=== PATIENT | female | born 1980 | race African-American/Black ===

== ENCOUNTER → 2016-12-18 | Outpatient (CLI) | payer OTHER ==
[~2016-12-18] MED LIST: CYCL5TAB PO; NAPR500 OR; NAPR550 PO; TYLE3 PO; Z.0.NO CURRENT MEDS
== END ==
LOC: HPND 11:11
PROVIDERS: ATTEND Obstetrics & Gynecology
DX: Z36 Encounter for antenatal screening of mother (principal); D57.3 Sickle-cell trait; Z3A.12 12 weeks gestation of pregnancy
CPT/HCPCS: 36416; 76813

== ENCOUNTER 2017-06-23 04:10 | Inpatient (IN) | payer OTHER ==
[2017-06-23] VITALS (16 sets, daily range): BP systolic 104–125; BP diastolic 69–93; PULSE 82–127; RESP 14–18; TEMP 98.3–98.5
[2017-06-23] MEDS ORDERED: LIDOCAINE HCL 1% 50 ML VIAL ONE (04:16)
[2017-06-23] MEDS ORDERED: OXYTOCIN 10 UNIT/ML AMP ONE (04:16)
--- NOTE | 2017-06-23 04:54 | PD.OB.DELI ---
Anesthesia: None Episiotomy: None Vaginal Delivery: Spontaneous, Precipitous Presentation: Occiput anterior Nuchal Cord: x1 Delayed cord clamping (45 sec): No : Female One Minute : 9 Five Minute : 9 Placenta: Spontaneous delivery, Intact, 3 vessel cord Laceration: No lacerations (pt is a 36 yo who presented fully dilated with a bulging bag.) Estimated blood loss: 150cc Additional Information Pt is a 36 yo who presented at 38 weeks and 4 days anastasiya and fully dilated. Pt was assisted to the bed, and noted to be fully dilated with bulging bag. AROM was done with [place] with clear return. Pt was GBS positive, but tjhere was no time for GBS antibiotic prophylaxis. Pt proceeded to deliver precipitously over 3 contractions. Occiput anterior , with nuchal cord that was easily reduced. Cord was clamped and divided and female infant placed on mother's abdomen. Placenta/membranes was delivered complete, spontaneous. Perineum intact. Dusty Zarco MD Jun 23, 2017 04:54
[2017-06-23] MEDS ORDERED: OXYTOCIN 30 UNITS-500ML PREMIX 500 ML IV SCH (05:00)
[2017-06-23] MEDS ORDERED: ZOLPIDEM TARTRATE 5 MG TAB PO PRN (05:00)
[2017-06-23] MEDS ORDERED: WITCH HAZEL 50%/GLYCERIN 12.5% 40 PAD JAR TOPICAL PRN (05:00)
[2017-06-23] MEDS ORDERED: ONDANSETRON ODT 4 MG TAB PO PRN (05:00)
[2017-06-23] MEDS ORDERED: OXYTOCIN 10 UNIT/ML AMP IM ONE (05:00)
[2017-06-23] MEDS ORDERED: BENZOCAINE 20% TOPICAL SPRAY 60 ML CAN TOPICAL PRN (05:00)
[2017-06-23] MEDS ORDERED: ALUMINUM/MAGNESIUM/SIMETH 30 ML CUP PO PRN (05:00)
[2017-06-23] MEDS ORDERED: DOCUSATE SODIUM 50 MG/SENNA 8.6 MG TAB PO PRN (05:00)
[2017-06-23] MEDS ORDERED: SODIUM CHLORIDE 0.9% FLUSH 10 ML FLUSH IV FLUSH PRN (05:00)
--- NOTE | 2017-06-23 05:09 | HHI.HP ---
HPI Chief Complaint Contractions Date Seen: Jun 23, 2017 Time Seen: 16:30 Travel History International Travel<30 Days: No Contact w/Intl Traveler<30Days: No Known Affected Area: No History of Present Illness HPI Pt is a 36 yo with EDC 06-26-2017. Pt with care with Dr Cohen. care uncomplicated per patient. GBS Positive. Pt states she had been having contractions since afternoon. She arrived on L&D fully dilated with bulging membranes. Denies vaginal bleeding or leaking. Active movements. Para: 2 : 3 Miscarriage: 0 : 0 History Past Medical History Medical History: Denies Significant Hx Past Surgical History Surgical History: No Previous Surgery Family History Family History: Negative Social History Alcohol Use: No Tobacco Use: No Substance Abuse: No Review of Systems Except as stated in HPI: all other systems reviewed are Neg Physical Exam Narrative GENERAL: Well-nourished, well-developed patient. SKIN: Warm and dry. HEAD: Normocephalic and atraumatic. EYES: No scleral icterus. No injection or drainage. ENT: No nasal drainage noted. Mucous membranes pink. Airway patent. NECK: Supple, trachea midline. No JVD. CARDIOVASCULAR: Regular rate and rhythm without murmurs, gallops, or rubs. RESPIRATORY: Breath sounds equal bilaterally. No accessory muscle use. BREASTS: Bilateral exam showed no masses , no retractions, no nipple discharge. ABDOMEN/GI: Abdomen soft, non-tender, bowel sounds present, no rebound, no guarding Gravid to [40] weeks size Fundal Height: [40] GENITOURINARY: External Genitalia: intact and normal in appearance BUS glands: [-] Cervix: [-] Dilatation: [full] Effacement: Station: [+1] Presentation: [vertex] Membranes: [intact or ruptured] Uterine Contractions: [q 1-2 minutes] FHT's: Category: [1] Baseline: [130] Reactive: [-] Variability: [mod] Decels: [-early EXTREMITIES: No cyanosis or edema. BACK: Nontender without obvious deformity. No CVA tenderness. NEUROLOGICAL: Awake and alert. Motor and sensory grossly within normal limits. Five out of 5 muscle strength in all muscle groups. Normal speech. Data Data Orders Oxytocin Inj (Pitocin Inj) (06/23/17 04:16) Lidocaine 1% Inj (50 Ml) (Xylocaine 1% I (06/23/17 04:16) Vital Signs (Adult) .QSHIFT (06/23/17 04:47) Activity Oob Ad Alyssa (06/23/17 04:47) Ice / Cold Pack PRN (06/23/17 04:47) Discontinue Iv (06/23/17 04:47) Sitz Bath PRN (06/23/17 04:47) ^ Massage (06/23/17 04:47) ^ Rhogam (06/23/17 04:47) Urinary Catheter Management .PRN (06/23/17 04:47) Diet Regular Basic (06/23/17 Breakfast) Sodium Chloride 0.9% Flush (Ns Flush) (06/23/17 09:00) Sodium Chloride 0.9% Flush (Ns Flush) (06/23/17 05:00) Oxytocin 30 Units-500ml Premix (Pitocin (06/23/17 05:00) Acetaminophen (Tylenol) (06/23/17 05:00) Ibuprofen (Motrin) (06/23/17 05:00) Benzocaine 20% Top Spr (Americaine 20% T (06/23/17 05:00) Witch Lupe-Glycerin Pad (Tucks Pads) (06/23/17 05:00) Docusate Sodium-Senna (Evie-Colace) (06/23/17 05:00) Zolpidem (Ambien) (06/23/17 05:00) Jeouulx-Kuikh-Fgkdtuf Inj (M-M-R Ii Inj) (06/23/17 16:00) Opod-Acy-Kzhodm (Booster) Inj (Boostrix (06/23/17 16:00) Al-Mag Hy-Si 40-40-4 Mg/Ml Liq (Mag-Al P (06/23/17 05:00) Ondansetron Odt (Zofran Odt) (06/23/17 05:00) Oxytocin Inj (Pitocin Inj) (06/23/17 05:00) Assessment/Plan Assessment and Plan Term labor Proceed to delivery Dusty Zarco MD Jun 23, 2017 05:09
[2017-06-23] MEDS ORDERED: AMMONIA AROMATIC INHALANT 0.33 ML ONE (05:40)
[2017-06-23 06:08] LABS: AUTOMATED NEUTROPHIL # 8.6 TH/MM3 (1.8-7.7); BASOPHIL % 0.3 % (0.0-2.0); EOSINOPHIL % 0.1 % (0.0-4.0); HEMO FLAGS DIFF FINAL; LYMPH % 15.3 % (9.0-44.0); LYMPHOCYTE # 1.7 TH/MM3 (1.0-4.8); MEAN CELL VOLUME 88.6 FL (80.0-100.0); MEAN CORPUSCULAR HEMOGLOBIN 30.2 PG (27.0-34.0); MEAN CORPUSCULAR HGB CONC 34.1 % (32.0-36.0); MONO % 6.2 % (0.0-8.0); NEUT % 78.1 % (16.0-70.0); PLATELET COUNT 157 TH/MM3 (150-450); RED BLOOD COUNT 4.18 MIL/MM3 (4.00-5.30); RED CELL DISTRIBUTION WIDTH 14.2 % (11.6-17.2); WHITE BLOOD COUNT 11.1 TH/MM3 (4.0-11.0)
[2017-06-23] MEDS: IBUPROFEN 600 MG TAB PO PRN ×3 (06:12→18:21)
[2017-06-23] MEDS: ACETAMINOPHEN 325 MG TAB PO PRN ×3 (07:47→18:23)
[2017-06-23] MEDS ORDERED: SODIUM CHLORIDE 0.9% FLUSH 10 ML FLUSH IV FLUSH SCH (09:00)
--- NOTE | 2017-06-23 15:56 | HHI.OB ---
Subjective Post Day: 1 Remarks Pt doing well, less bleeding, no pain, going well Objective Vitals/I&O Vital Signs Date Time Temp Pulse Resp B/P (MAP) Pulse Ox O2 Delivery O2 Flow Rate FiO2 06/23/17 07:30 16 06/23/17 07:30 89 117/79 (92) 06/23/17 07:15 87 114/75 (88) 06/23/17 07:00 93 116/80 (92) 06/23/17 07:00 16 06/23/17 06:46 107 113/87 (96) 06/23/17 06:45 16 06/23/17 06:30 18 06/23/17 06:30 82 109/69 (82) 06/23/17 06:15 87 111/69 (83) 06/23/17 06:15 16 06/23/17 06:00 18 06/23/17 06:00 98 109/72 (84) 06/23/17 06:00 98.3 06/23/17 05:45 99 109/74 (86) 06/23/17 05:44 101 110/73 (85) 06/23/17 05:30 127 113/93 (100) 06/23/17 05:15 18 06/23/17 05:00 118 125/92 (103) Objective Remarks GENERAL: Well-nourished, well-developed patient. CARDIOVASCULAR: Regular rate and rhythm without murmurs, gallops, or rubs. RESPIRATORY: Breath sounds equal bilaterally. No accessory muscle use. ABDOMEN/GI: Abdomen soft, non-tender. Fundus: Firm, non-tender at umbilicus. GENITOURINARY: Light to moderate bleeding. EXTREMITIES: No cyanosis or edema, non-tender, without signs of DVT. Medications and IVs Current Medications Medications (Trade) Dose Ordered Sig/Kalyani Route Start Time Stop Time Status Last Admin (NS Flush) 2 ml BID IV FLUSH 06/23/17 09:00 (NS Flush) 2 ml UNSCH PRN IV FLUSH 06/23/17 05:00 (Tylenol) 650 mg Q4H PRN PO 06/23/17 05:00 06/23/17 12:25 (Motrin) 600 mg Q6H PRN PO 06/23/17 05:00 06/23/17 12:25 (Americaine 20% Top Spr) 1 spray Q4H PRN TOPICAL 06/23/17 05:00 (Tucks Pads) 1 applic QID PRN TOPICAL 06/23/17 05:00 (Evie-Colace) 2 tab Q12H PRN PO 06/23/17 05:00 (Ambien) 5 mg HS PRN PO 06/23/17 05:00 (M-M-R Ii Inj) 0.5 ml ONCE ONCE SQ 06/23/17 16:00 06/23/17 16:01 (Boostrix Inj) 0.5 ml ONCE ONCE IM 06/23/17 16:00 06/23/17 16:01 (Mag-Al Plus Susp Liq) 15 ml Q8H PRN PO 06/23/17 05:00 (Zofran Odt) 4 mg Q6H PRN PO 06/23/17 05:00 Assessment/Plan Assessment and Plan PPD # 1 s/p precipitous delivery upon arrival to L and D...doing well Discharge Planning DC home lukas or next day Kera Tello MD Jun 23, 2017 15:56
[2017-06-23] MEDS ORDERED: MEASLES, MUMPS, RUBELLA VACCINE 0.5 ML VIAL SQ ONE (16:00)
[2017-06-23] MEDS ORDERED: DIPHTH/TETANUS/ACEL PERTUSSIS (BOOSTER) 0.5 ML VIAL/PFS IM ONE (16:00)
[2017-06-24] MEDS: ACETAMINOPHEN 325 MG TAB PO PRN ×4 (00:15→22:16)
[2017-06-24] MEDS: IBUPROFEN 600 MG TAB PO PRN ×4 (00:15→22:16)
[2017-06-24 01:07] LABS: BACTERIA, URINE RARE /hpf; BLOOD, URINE LARGE (NEG); COMMENT (UR) CULTURE INDICATED; CULTURE IF INDICATED CULTURE INDICATED; GLUCOSE,URINE TRACE mg/dL (NEG); KETONE, URINE NEG (NEG); MUCUS URINE FEW /lpf (OCC); NITRITE,URINE NEG (NEG); PH, URINE 5.5 (5.0-8.5); SQUAMOUS EPITHELIAL CELL URINE 1 /hpf (0-5); URINE COLOR YELLOW (YELLW/STRAW)
--- NOTE | 2017-06-24 07:49 | HHI.OB ---
Subjective Post Day: 1 Remarks Pt doing well, less bleeding, BM,good urination Objective Objective Remarks GENERAL: Well-nourished, well-developed patient. CARDIOVASCULAR: Regular rate and rhythm without murmurs, gallops, or rubs. RESPIRATORY: Breath sounds equal bilaterally. No accessory muscle use. ABDOMEN/GI: Abdomen soft, non-tender. Fundus: Firm, non-tender at umbilicus. GENITOURINARY: Light to moderate bleeding. EXTREMITIES: No cyanosis or edema, non-tender, without signs of DVT. Medications and IVs Current Medications Medications (Trade) Dose Ordered Sig/Kalyani Route Start Time Stop Time Status Last Admin (NS Flush) 2 ml BID IV FLUSH 06/23/17 09:00 (NS Flush) 2 ml UNSCH PRN IV FLUSH 06/23/17 05:00 (Tylenol) 650 mg Q4H PRN PO 06/23/17 05:00 06/24/17 07:11 (Motrin) 600 mg Q6H PRN PO 06/23/17 05:00 06/24/17 07:12 (Americaine 20% Top Spr) 1 spray Q4H PRN TOPICAL 06/23/17 05:00 (Tucks Pads) 1 applic QID PRN TOPICAL 06/23/17 05:00 (Evie-Colace) 2 tab Q12H PRN PO 06/23/17 05:00 06/23/17 18:20 (Ambien) 5 mg HS PRN PO 06/23/17 05:00 (Mag-Al Plus Susp Liq) 15 ml Q8H PRN PO 06/23/17 05:00 (Zofran Odt) 4 mg Q6H PRN PO 06/23/17 05:00 Assessment/Plan Assessment and Plan PPD # 1 s/p precipitous delivery upon arrival to L and Anh.doing well Discharge Planning DC home lukas due to GBS + Kera Tello MD Jun 24, 2017 07:49
[2017-06-24 08:50] VITALS: BP 106/53; PULSE 91; RESP 16; TEMP 98.6
[2017-06-24 19:40] VITALS: BP 111/66; PULSE 81; RESP 16; TEMP 98.1
[2017-06-25] MEDS: ACETAMINOPHEN 325 MG TAB PO PRN (06:04)
[2017-06-25] MEDS: IBUPROFEN 600 MG TAB PO PRN (06:05)
[2017-06-25 07:55] VITALS: BP 116/80; PULSE 82; RESP 16; TEMP 98.3
--- NOTE | 2017-06-25 09:04 | MD ---
cc: DEVANTE ZHOU ADMISSION DATE: 06/23/2017 DISCHARGE DATE: 06/25/2017 [place] Visit Search.Discharge Date ADMISSION DIAGNOSES 1. Term 2. Active labor and delivery. HISTORY OF PRESENT ILLNESS/HOSPITAL COURSE The patient is a 36-year-old black female, para 2-0-1-2, with an LMP of 09/19/2016, EDC of 06/26/2017. Her course was benign. She developed active labor on 06/23/2017, was admitted at complete dilation and pushing and delivered precipitously by the hospitalist over an intact perineum, a viable vigorous female weighing 7 pounds, 1 ounce. did well and was discharged home in excellent condition on 06/25/2017. DISCHARGE INSTRUCTIONS Advised NPV, light activity, no driving, to return to see me in 6 weeks. The baby's name is Carolyn. She is breast-feeding. MD ELIJAH Bolton/[place] /8:53 AM /8:58 AM
== END 2017-06-25 10:08 | disposition home or self-care (01) | DRG 775 ==
LOC: HOBED 04:10 → H2EB 04:14 → H1EA 08:07
PROVIDERS: ADMIT Obstetrics & Gynecology; ATTEND Obstetrics & Gynecology
PROC: 10E0XZZ Delivery of Products of Conception, External Approach (ICD-10-PCS; principal; 2017-06-23)
PROC: 10907ZC Drainage of Amniotic Fluid, Therapeutic from Products of Conception, Via Natural or Artificial Opening (ICD-10-PCS; 2017-06-23)
DX: O62.3 Precipitate labor (principal); O99.824 Streptococcus B carrier state complicating childbirth; Z37.0 Single live birth; Z3A.38 38 weeks gestation of pregnancy
CPT/HCPCS: 81001; 85025; 86900; 86901; 87086; 90715; 96372; J2590